=== PATIENT | female | born 1960 | race Caucasian/White ===

== ENCOUNTER 2017-03-09 13:27 | Emergency (ER) | payer MEDICARE ==
--- NOTE | 2017-03-09 13:35 | EDM.PDOC ---
ED HPI GENERAL MEDICAL PROBLEM - General Chief Complaint: Upper Extremity Injury/Pain Stated Complaint: FELL ON RT SHOULDER DOWN TO THUMB Time Seen by Provider: 03/09/17 13:34 Source of Information: Reports: Patient, Old Records, RN History Limitations: Reports: No Limitations - History of Present Illness INITIAL COMMENTS - FREE TEXT/NARRATIVE: Arrives to ER from home by POV with c/o pain at the Rt neck, trapezius region, Rt shoulder, Rt elbow, and pain radiating to the Rt hand and fingers. Pt states that the pain is the result of falling of the end of her bed from a sitting position at approx. 9AM this morning. Denies any other injury. Onset: Today Onset Date: 03/09/17 Onset Time: 09:00 Duration: Constant Location: Reports: Neck, Upper Extremity, Right, Radiates to (Rt hand) Quality: Reports: Ache Severity: Moderate Improves with: Reports: Immobilization, Rest Worsens with: Reports: Movement Context: Reports: Other (fall) Associated Symptoms: Reports: No Other Symptoms Treatments PSYCHOLOGICAL OPERATIONS SPECIALIST: Reports: Aspirin Right Arm Pain Score (Numeric/FACES): 7 - Related Data Allergies Allergy/AdvReac Type Severity Reaction Status Date / Time gadobenate dimeglumine Allergy Unknown SHORT OF Verified 03/09/17 13:48 [From Multihance] BREATH/WHEEZING/CHEST TIGHTNESS meloxicam [From Mobic] Allergy Unknown UNKNOWN Verified 03/09/17 13:48 tramadol Allergy Syncope Verified 03/09/17 13:49 mushroom extract Allergy Unknown HIVES/URTIC Uncoded 03/09/17 13:48 ARIA Home Meds: Home Meds Hydrochlorothiazide 25 mg PO DAILY 04/10/14 [History] Losartan [Cozaar] 50 mg PO DAILY 04/10/14 [History] FLUoxetine [PROzac] 40 mg PO DAILY 10/28/14 [History] oxyCODONE HCl/Acetaminophen [Endocet 5-325 Tablet] 1 each PO Q4H PRN 10/28/14 [ History] Esomeprazole [NexIUM] 20 mg PO DAILY 04/24/15 [History] Aspirin [Halfprin] 81 mg PO DAILY 03/09/17 [History] Pregabalin [Lyrica] 100 mg PO BID 03/09/17 [History] atorvaSTATin [Lipitor] 20 mg PO DAILY 03/09/17 [History] metFORMIN [Glucophage XR] 500 mg PO BIDMEALS 03/09/17 [History] Past Medical History Cardiovascular History: Reports: High Cholesterol, Hypertension Gastrointestinal History: Reports: GERD Neurological History: Reports: Neuropathy, Diabetic, Neuropathy, Peripheral, Other (See Below) (pseudoseizure disorder) Psychiatric History: Reports: Anxiety, Depression Endocrine/Metabolic History: Reports: Diabetes, Type II, Obesity/BMI 30+ Social & Family History - Family History Family Medical History: Noncontributory - Tobacco Use Smoking Status *Q: Current Every Day Smoker Years of Tobacco use: 30 Used Tobacco, but Quit: No Second Hand Smoke Exposure: Yes - Alcohol Use Days Per Week of Alcohol Use: 0 - Recreational Drug Use Recreational Drug Use: No Drug Use in Last 12 Months: No - Living Situation & Occupation Living situation: Reports: with Family Review of Systems - Review of Systems Review Of Systems: ROS reveals no pertinent complaints other than HPI. ED EXAM, GENERAL - Physical Exam Exam: See Below Exam Limited By: No Limitations General Appearance: Alert, WD/WN, No Apparent Distress, Obese Eye Exam: Bilateral Eye: Normal Inspection Ears: Normal External Exam Nose: Normal Inspection, No Blood Throat/Mouth: Normal Inspection Head: Atraumatic, Normocephalic Neck: Supple, Limited Range of Motion, Other (tender at Rt lower paraspinal cervical muscles). No: Lymphadenopathy (L), Lymphadenopathy (R) Respiratory/Chest: No Respiratory Distress, Lungs Clear Cardiovascular: Normal Peripheral Pulses, Regular Rate, Rhythm Back Exam: Full Range of Motion, Other (Rt superior trapezius muscle tenderness to palpation) Extremities: Normal Capillary Refill, Arm Pain (Rt), Limited Range of Motion ( Rt shoulder and Rt elbow), Other (Tender to palpation of Rt shoulder and Rt elbow, with contusion to Rt medial elbow.) Neurological: Alert, Oriented, CN II-XII Intact, Normal Cognition, Normal Gait, No Motor/Sensory Deficits Psychiatric: Normal Affect, Normal Mood Skin Exam: Warm, Dry, Intact Course - Vital Signs Last Recorded V/S: Last Vital Signs Temp 36.8 C 03/09/17 13:42 Pulse 72 03/09/17 13:42 Resp 20 03/09/17 13:42 BP 127/78 03/09/17 13:42 Pulse Ox 97 03/09/17 13:42 - Orders/Labs/Meds Meds: Medications Discontinued Medications Generic Name Dose Route Start Last Admin Trade Name Tushar PRN Reason Stop Dose Admin Oxycodone/Acetaminophen 1 tab 03/09/17 14:17 03/09/17 14:27 Percocet 325-5 Mg PO 03/09/17 14:18 1 tab ONETIME ONE Administration - Radiology Interpretation Free Text/Narrative:: Xray C-spine: no fracture Xray Rt shoulder: no fracture Xray Rt elbow: no fracture Departure - Departure Time of Disposition: 15:05 Disposition: Home, Self-Care 01 Condition: fair Clinical Impression: Trapezius muscle spasm, Cervical radiculopathy Contusion of right elbow Qualifiers: Encounter type: initial encounter Qualified Code(s): S50.01XA - Contusion of right elbow, initial encounter Cervical strain, acute Qualifiers: Encounter type: initial encounter Qualified Code(s): S16.1XXA - Strain of muscle, fascia and tendon at neck level, initial encounter Fall as cause of accidental injury at home as place of occurrence Qualifiers: Encounter type: initial encounter Qualified Code(s): W19.XXXA - Unspecified fall, initial encounter - Discharge Information Instructions: Cervical Radiculopathy, [id number], Contusion, [id number], Shoulder Pain, [id number] Forms: ED Department Discharge Additional Instructions: Rest and ice packs to area(s) of pain. Activity as tolerated. Follow up in clinic next week if not improving as expected.
[2017-03-09 13:43] VITALS: BP 127/78
[2017-03-09] MEDS ORDERED: Acetaminophen/oxyCODONE 325-5 MG Tab PO ONE (14:17)
--- NOTE | 2017-03-09 14:48 | CR ---
Clinical history: 57-year-old female injured fall Interpretation: 2 views right shoulder (internal/external rotation) show evidence of old trauma i.e. Hill-Sachs notch like deformity lateral aspect of the humeral head and some reactive sclerosis ipsi lateral acromioclavicular joint. Subtle narrowing of the space between the acromion process scapula and the the head of the humerus s uggesting possible rotator cuff impingement or tear but no juxta-articular rotator cuff tendon calci fication. No pathologic skeletal lesions. Right lung apex clear. CONCLUSION: No sign of acute fracture or dislocation. Arthritis.
--- NOTE | 2017-03-09 14:50 | CR ---
Clinical history: 57-year-old female injured right elbow fall. Interpretation: Tiny spur olecranon process proximal ulna. No joint effusion, right elbow fracture or dislocation. No foreign bodies.
--- NOTE | 2017-03-09 14:51 | CR ---
Clinical history: 57-year-old female injured in fall. Interpretation: AP, lateral and open-mouth odontoid views of the cervical spine confirm some mild ar thritic changes (uncinate spur and sclerosis articulating facets). No sign of prevertebral soft tissue swelling, cervical fracture, spondylolisthesis or abnormal inter vertebral disc space narrowing. Lung apices clear. CONCLUSION: Arthritis. No fractures.
== END 2017-03-09 15:18 | disposition home or self-care (01) ==
LOC: DL.ED 13:27
DX: M62.838 Other muscle spasm (principal); M54.12 Radiculopathy, cervical region; E11.42 Type 2 diabetes mellitus with diabetic polyneuropathy; F17.210 Nicotine dependence, cigarettes, uncomplicated; I10 Essential (primary) hypertension; K21.9 Gastro-esophageal reflux disease without esophagitis; E66.9 Obesity, unspecified; Z79.82 Long term (current) use of aspirin; Z79.84 Long term (current) use of oral hypoglycemic drugs; Z79.899 Other long term (current) drug therapy; Z88.8 Allergy status to other drugs, medicaments and biological substances
CPT/HCPCS: 72040; 73030; 73080; 99283; A9270

== ENCOUNTER 2017-06-13 01:45 | Emergency (ER) | payer MEDICARE, OTHER ==
[2017-06-13] MEDS ORDERED: Tenecteplase 50 MG Kit IV ONE (01:46)
[2017-06-13] MEDS ORDERED: Ondansetron 4 MG/2 ML SDV ONE (02:08)
[2017-06-13] MEDS ORDERED: Tenecteplase 50 MG Kit ONE (02:49)
[2017-06-13 04:35] LABS: CHLORIDE,CL 101 mmol/L (101-111); SODIUM,NA 140 mmol/L (135-145)
--- NOTE | 2017-06-14 12:54 | EKG ---
06/13/2017 - HUGO MCWILLIAMS - Maximus 12-lead EKG shows normal sinus rhythm with heart rate of 72. No significant ST elevation or ST depression noted on this 12-lead EKG. Nonspecific ST-T wave changes noted on lead aVL. [facility] /[id number]
== END 2017-06-13 03:28 ==
LOC: DL.ED 01:45
DX: I63.9 Cerebral infarction, unspecified (principal); E11.9 Type 2 diabetes mellitus without complications; I10 Essential (primary) hypertension; Z87.891 Personal history of nicotine dependence
CPT/HCPCS: 36415; 70450; 71010; 80053; 81001; 82150; 82962; 84484; 85025; 85610; 96374; 96375; 99284; 99285; J3101

== ENCOUNTER 2017-07-25 12:12 | Emergency (ER) | payer MEDICARE ==
[2017-07-25 12:27] VITALS: BP 131/82
--- NOTE | 2017-07-25 12:32 | EDM.PDOC ---
ED HPI GENERAL MEDICAL PROBLEM - General Chief Complaint: Neurological Problem Stated Complaint: [id number] LEFT LEG NUMB HAD STROKE IN JUN Time Seen by Provider: 07/25/17 12:25 Source of Information: Reports: Patient, Family, RN, RN Notes Reviewed History Limitations: Reports: Language Barrier (speech garbled and slurred), Physical Impairment - History of Present Illness INITIAL COMMENTS - FREE TEXT/NARRATIVE: Patient brought to the ER by her . states she had a stroke in June. He states today about 1130 he noticed that her speech was hard to understand and that she was unable to stand on her own. Patient is alert upon arrival and attempting to answer questions. Denies pain at this time. Onset: Today, Sudden - Related Data Allergies Allergy/AdvReac Type Severity Reaction Status Date / Time gadobenate dimeglumine Allergy Unknown SHORT OF Verified 07/25/17 12:19 [From Multihance] BREATH/WHEEZING/CHEST TIGHTNESS meloxicam [From Mobic] Allergy Unknown UNKNOWN Verified 07/25/17 12:19 tramadol Allergy Syncope Verified 07/25/17 12:19 mushroom extract Allergy Unknown HIVES/URTIC Uncoded 07/25/17 12:19 ARIA Home Meds: Home Meds Hydrochlorothiazide 25 mg PO DAILY 04/10/14 [History] Losartan [Cozaar] 50 mg PO DAILY 04/10/14 [History] FLUoxetine [PROzac] 40 mg PO DAILY 10/28/14 [History] oxyCODONE HCl/Acetaminophen [Endocet 5-325 Tablet] 1 each PO Q4H PRN 10/28/14 [ History] Esomeprazole [NexIUM] 20 mg PO DAILY 04/24/15 [History] Aspirin [Halfprin] 81 mg PO DAILY 03/09/17 [History] Pregabalin [Lyrica] 100 mg PO BID 03/09/17 [History] atorvaSTATin [Lipitor] 20 mg PO DAILY 03/09/17 [History] metFORMIN [Glucophage XR] 500 mg PO BIDMEALS 03/09/17 [History] Past Medical History HEENT History: Reports: Impaired Vision Other HEENT History: wears glasses Cardiovascular History: Reports: High Cholesterol, Hypertension Respiratory History: Reports: None Gastrointestinal History: Reports: GERD Genitourinary History: Reports: None 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: Reports: None Neurological History: Reports: Neuropathy, Diabetic, Neuropathy, Peripheral, Other (See Below) (pseudoseizure disorder) Psychiatric History: Reports: Anxiety, Depression Endocrine/Metabolic History: Reports: Diabetes, Type II, Obesity/BMI 30+ Hematologic History: Reports: None Immunologic History: Reports: None Oncologic (Cancer) History: Reports: None Dermatologic History: Reports: None - Infectious Disease History Infectious Disease History: Reports: Chicken Pox, Measles, Mumps - Past Surgical History Head Surgeries/Procedures: Reports: None Other Musculoskeletal Surgeries/Procedures:: left ankle Social & Family History - Family History Family Medical History: Noncontributory - Tobacco Use Smoking Status *Q: Current Every Day Smoker Years of Tobacco use: 30 Packs/Tins Daily: 0.5 Used Tobacco, but Quit: No Second Hand Smoke Exposure: Yes - Caffeine Use Caffeine Use: Reports: Soda - Alcohol Use Days Per Week of Alcohol Use: 0 - Recreational Drug Use Recreational Drug Use: No Drug Use in Last 12 Months: No - Living Situation & Occupation Living situation: Reports: with Family ED ROS GENERAL - Review of Systems Review Of Systems: ROS reveals no pertinent complaints other than HPI. ED EXAM, NEURO - Physical Exam Exam: See Below Exam Limited By: Language Barrier General Appearance: Alert, Anxious, Mild Distress Eye Exam: Bilateral Eye: Normal Inspection, PERRL Ears: Normal External Exam Nose: Normal Inspection Throat/Mouth: Normal Inspection, Normal Voice, No Airway Compromise Head Exam: Atraumatic, Normocephalic Neck: Normal Inspection, Supple, Non-Tender, Full Range of Motion Respiratory/Chest: No Respiratory Distress, Lungs Clear, Normal Breath Sounds, No Accessory Muscle Use, Chest Non-Tender Cardiovascular: Normal Peripheral Pulses, Regular Rate, Rhythm, No Edema, No Gallop, No JVD, No Murmur, No Rub GI/Abdominal: Normal Bowel Sounds, Soft, Non-Tender, No Organomegaly, No Distention, No Abnormal Bruit, No Mass (Female) Exam: Deferred Rectal (Female) Exam: Deferred Neurological: Alert, Normal Mood/Affect, Abnormal Finger to Nose, Abnormal Sensation, Abnormal Motor, Other (family states unable to stand). No: Straight Leg Raise (L) Back Exam: Normal Inspection, Full Range of Motion Extremities: Normal Inspection, Non-Tender, Limited Range of Motion (left) Psychiatric: Normal Affect, Normal Mood Skin Exam: Warm, Dry, Intact, Normal Color, No Rash EKG INTERPRETATION EKG Date: 07/25/17 Rhythm: NSR [place]: Normal P-Wave: Present QRS: Normal ST-T: Normal QT: Normal Comparison: No Change Course - Vital Signs Last Recorded V/S: Last Vital Signs Temp 98.2 F 07/25/17 12:21 Pulse 85 07/25/17 12:21 Resp 18 07/25/17 12:21 BP 131/82 07/25/17 12:21 Pulse Ox 98 07/25/17 12:21 - Orders/Labs/Meds Orders: Active Orders 24 hr Category Date Time Status EKG Documentation Completion [RC] URGENT Care 07/25/17 12:21 Active Labs: Laboratory Tests 07/25/17 07/25/17 07/25/17 Range/Units 12:22 12:22 12:22 WBC 10.3 H (5.0-10.0) 10^3/uL RBC 4.95 (4.2-5.4) 10^6/uL Hgb 13.4 (12.0-16.0) g/dL Hct 39.9 (37.0-47.0) % MCV 80.6 (80-100) fL MCH 27.1 (27.0-34.0) pg MCHC 33.6 (33.0-35.0) g/dL Plt Count 270 (150-450) 10^3/uL Neut % (Auto) 72.1 (42.2-75.2) % Lymph % (Auto) 22.0 (20.5-50.1) % [place] % (Auto) 3.9 (2-8) % Eos % (Auto) 1.5 (1.0-3.0) % Baso % (Auto) 0.5 (0.0-1.0) % PT 9.1 (9.0-12.0) SEC INR 0.9 (0.9-1.2) Sodium 134 L (135-145) mmol/L Potassium 3.3 L (3.6-5.0) mmol/L Chloride 97 L (101-111) mmol/L Carbon Dioxide 25.0 (21.0-31.0) mmol/L Anion Gap 15.3 BUN 12 (7-18) mg/dL Creatinine 1.0 (0.6-1.3) mg/dL Est Cr Clr Drug Dosing 54.24 mL/min Estimated GFR (MDRD) 57 BUN/Creatinine Ratio 12.00 Glucose 166 H (74-105) mg/dL Calcium 8.8 (8.4-10.2) mg/dl Total Bilirubin 0.5 (0.2-1.0) mg/dL AST 24 (10-42) IU/L ALT 18 (10-60) IU/L Alkaline Phosphatase 104 (42-121) IU/L Troponin I < 0.02 (0.00-0.02) ng/ml Total Protein 7.7 (6.7-8.2) g/dl Albumin 3.8 (3.2-5.5) g/dl Globulin 3.9 Albumin/Globulin Ratio 0.97 Meds: Medications Discontinued Medications Generic Name Dose Route Start Last Admin Trade Name Freq PRN Reason Stop Dose Admin Alteplase, Recombinant 9 mg 07/25/17 13:30 07/25/17 13:42 Activase IV 07/25/17 13:31 9 mg .BOLUS ONE Administration Alteplase, Recombinant 81 mg 07/25/17 13:46 07/25/17 13:48 Activase IV 07/25/17 13:47 81 mg ASDIRECTED ONE Administration - Re-Assessments/Exams Free Text/Narrative Re-Assessment/Exam: 07/25/17 14:19 1312: [facility] called to initiate transport of the patient to their facility. Symptoms and past history given to Dr. Mota. Instructions from Dr. Mota were to give the patient tPA and transport her to [facility]. The provider told Dr. Mota that on 06/13/17 the patient had mistakenly been given tnkase instead of tPA for similar symptoms. It was reiterated to Dr. Mota that the patient had received tnkase about [address] Mota states understanding and to continue with the orders to give tPA right now and transport the patient by helicopter to [facility]. 07/25/17 14:35 Departure - Departure Time of Disposition: 14:16 Disposition: DC/Tfer to [facility] 02 Condition: Fair, Critical Clinical Impression: Left-sided weakness, Slurred speech - Discharge Information Forms: ED Department Discharge, Interfacility Transfer ALEJANDRA
--- NOTE | 2017-07-25 12:50 | CT ---
Clinical history: 57-year-old female left-sided weakness, "stuttering" speech and history of "stroke" in June 2017. Scan technique: Volume acquisition of data emergency unenhanced CT scan of the head and brain obtaine d with patient lying supine on the Siemens multi slice scanner [facility]. All data archived in the PACS system for storage and study (bone/brain windows). Interpretation: No new signs of ischemic infarct or acute intracerebral/and ventricular/subarachnoid bleed when luz red directly back to CT images 13 June 2017. Chronic mild atrophy pattern. No supratentorial or posterior fossa mass lesion. Uniformly thick bony calvarium. Physiologic midline pineal and symmetric choroid plexus calcification s. No hydrocephalus. Cerebellum and brainstem unremarkable. Mastoid and paranasal sinuses clear. No sign of abnormal extracerebral/intracranial epidural or subdural hematoma. CONCLUSION: No change since [address] scan head. No new evidence intracranial infarct (ischemic or hemorrhagic).
[2017-07-25 12:52] LABS: CHLORIDE,CL 97 mmol/L (101-111); SODIUM,NA 134 mmol/L (135-145)
--- NOTE | 2017-07-26 22:26 | EKG ---
07/25/2017 - HUGO MCWILLIAMS - TIME OF EK:36 p.m. EKG shows normal sinus rhythm. There is left axis deviation. [facility] /[id number]
--- NOTE | 2017-07-26 22:35 | EKG ---
07/25/2017 - HUGO MCWILLIAMS - TIME: 12:35 p.m. EKG shows normal sinus rhythm. [facility] /[id number]
== END 2017-07-25 14:20 ==
LOC: DL.ED 12:12
DX: R47.81 Slurred speech (principal); R53.1 Weakness; I10 Essential (primary) hypertension; F17.210 Nicotine dependence, cigarettes, uncomplicated; Z88.5 Allergy status to narcotic agent; Z88.8 Allergy status to other drugs, medicaments and biological substances; Z79.84 Long term (current) use of oral hypoglycemic drugs; Z79.899 Other long term (current) drug therapy
CPT/HCPCS: 36415; 51702; 70450; 80053; 84484; 85025; 85610; 93005; 93010; 96365; 96374; 99285; J2997

== ENCOUNTER 2019-02-07 05:21 | Day surgery (SDC) | payer MEDICARE ==
[2019-02-07] MEDS ORDERED: fentaNYL 100 MCG/2 ML SDV IV ONE ×3 (05:22→06:30)
[2019-02-07] MEDS ORDERED: Midazolam 1 MG/ML 2 ML SDV IV ONE ×4 (05:22→06:37)
[2019-02-07] MEDS ORDERED: Sodium Chloride 0.9% 10 ML Syringe FLUSH PRN (06:00)
[2019-02-07] MEDS ORDERED: Dextrose 5%-0.45% NaCl 1,000 ML IV SCH (06:00)
[2019-02-07] MEDS ORDERED: fentaNYL 100 MCG/2 ML SDV ONE (06:07)
[2019-02-07] MEDS ORDERED: Midazolam 1 MG/ML 2 ML SDV ONE (06:07)
--- NOTE | 2019-02-07 08:25 | OR ---
DATE: 02/07/2019 PROCEDURE PERFORMED: Total colonoscopy, terminal ileoscopy, NBI, and multiple pinch biopsies. INSTRUMENT USED: PCF-H190DL Olympus video colonoscope. PREMEDICATIONS: Fentanyl 100 mcg intravenous, Versed 3 mg intravenous. Nasal O2 cannula. The procedure was done under pulse oximetry, BP recording, and cardiac catheterization technician. INDICATION: The patient with chronic diarrhea, unexplained and not responsive to medical measures. Colonoscopic examination is done for detection of any polypoid lesions and removal, biopsies to be obtained for microscopic colitis, endoscopic hemostasis therapy if needed. DESCRIPTION OF PROCEDURE: Initial rectal exam showed large external hemorrhoids. Rigid anoscopy showed small internal hemorrhoids without bleeding from them. The colonoscope was passed with ease. Numerous scattered diverticula were noted, more so in the distal left colon along with deformity. The scope was passed with ease up to and beyond the ileocecal junction to visualize normal-appearing terminal ileum, NBI views were obtained, photographs were taken, multiple pinch biopsies were taken and sent for histopathology. Photographs were taken of the normal-appearing cecum. No bleeding was noted from any of the visualized areas at the commencement of the examination. The bowel preparation was found to be adequate, [place] scale 2. No stricture. No vascular ectasia. No large isolated ulcerations seen. No evidence of diffuse inflammatory bowel disease in the form of friability, contact bleeding, or ulcerations. No polyp or tumor mass identified. Probing the proximal sides of folds and flexures using adequate distention and clearing up the stool material, withdrawal of the scope was made. Multiple pinch biopsies were taken from the normal-appearing mucosa of the mid transverse colon, mid descending colon, and rectosigmoid, and sent for any histopathologic evidence of microscopic colitis. No bleeding was noted from any of the visualized areas at the completion of examination. IMPRESSION: Diverticulosis. The patient tolerated the procedure well. [facility] /[id number]
[2019-02-07 11:14] VITALS: BP 113/57
== END 2019-02-07 08:54 | disposition home or self-care (01) ==
LOC: DL.ENDO 05:21
PROVIDERS: ATTEND Internal Medicine Gastroenterology
DX: K57.30 Diverticulosis of large intestine without perforation or abscess without bleeding (principal); K64.4 Residual hemorrhoidal skin tags; K64.8 Other hemorrhoids; K21.0 Gastro-esophageal reflux disease with esophagitis; I12.9 Hypertensive chronic kidney disease with stage 1 through stage 4 chronic kidney disease, or unspecified chronic kidney disease; E11.22 Type 2 diabetes mellitus with diabetic chronic kidney disease; N18.9 Chronic kidney disease, unspecified; F41.1 Generalized anxiety disorder; F32.9 Major depressive disorder, single episode, unspecified; E66.09 Other obesity due to excess calories; Z68.41 Body mass index [BMI] 40.0-44.9, adult; Z91.018 Allergy to other foods; Z88.1 Allergy status to other antibiotic agents; Z91.041 Radiographic dye allergy status; Z79.82 Long term (current) use of aspirin
CPT/HCPCS: 45380; J2250; J3010; J7042; 88305

== ENCOUNTER 2020-02-26 13:06 | Emergency (ER) | payer MEDICARE, SELFPAY ==
[2020-02-26] MEDS ORDERED: Aspirin 81 MG Tab.Chew PO ONE (13:14)
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
--- NOTE | 2020-02-26 13:51 | CR ---
EXAMINATION: Chest 1V Frontal SEX: Female AGE: 60 years CLINICAL HISTORY: 60-year-old obese hypertensive, diabetic female smoker with CHEST PAIN reported on CT scan chest 11 November 2019 to have "no acute cardiopulmonary abnormality or suspicious lung nodules". INTERPRETATION: (Upright AP portable chest) external quality assurance monitor chassis leads. No acute new cardiopulmonary abnormality since comparison film 07 June 2018. 1. Normal cardiac silhouette and pulmonary vascularity. No congestion, cephalization of flow, alveolar edema or dependent pleural effusion. 2. No lung mass or hilar lymphadenopathy. 3. No lobar infiltrate, atelectasis or collapse. 4. No pneumothorax or pneumomediastinum. Midline tracheal bronchial airway unremarkable.
[2020-02-26 14:27] LABS: ANION GAP 10.8 mEq/L (7-13); CHLORIDE,CL 100 mmol/L (98-107); SODIUM,NA 136 mmol/L (136-145)
[2020-02-26] MEDS ORDERED: GI Cocktail Oral Solution 30 ML PO ONE (14:37)
[2020-02-26 14:46] VITALS: BP 114/54; PULSE 75
== END 2020-02-26 15:45 | disposition home or self-care (01) ==
LOC: DL.ED 13:06
DX: R07.9 Chest pain, unspecified (principal); I12.9 Hypertensive chronic kidney disease with stage 1 through stage 4 chronic kidney disease, or unspecified chronic kidney disease; E11.22 Type 2 diabetes mellitus with diabetic chronic kidney disease; N18.9 Chronic kidney disease, unspecified; E78.5 Hyperlipidemia, unspecified; E11.42 Type 2 diabetes mellitus with diabetic polyneuropathy; F41.9 Anxiety disorder, unspecified; F32.9 Major depressive disorder, single episode, unspecified; E66.9 Obesity, unspecified; Z91.041 Radiographic dye allergy status; Z88.6 Allergy status to analgesic agent; Z91.018 Allergy to other foods; Z79.84 Long term (current) use of oral hypoglycemic drugs; Z79.82 Long term (current) use of aspirin; Z79.899 Other long term (current) drug therapy; Z68.33 Body mass index [BMI] 33.0-33.9, adult
CPT/HCPCS: 36415; 71045; 80053; 84484; 85025; 93005; 99283; 99285; A9270

== ENCOUNTER 2021-01-05 20:31 | Emergency (ER) | payer MEDICARE, OTHER ==
--- NOTE | 2021-01-05 21:33 | EDM.PDOC ---
ED HPI GENERAL MEDICAL PROBLEM - General Chief Complaint: Abdominal Pain Stated Complaint: PAIN ON LEFT SIDE OF BODY, SINCE MONDAY Time Seen by Provider: 01/05/21 21:20 Source of Information: Reports: Patient, RN, RN Notes Reviewed History Limitations: Reports: No Limitations - History of Present Illness INITIAL COMMENTS - FREE TEXT/NARRATIVE: Pt is a 60 year old female who presents to ER with c/o LLQ pain. She states the pain began Monday. Patient states she has been having loose stools 3-4 times per day since Monday. Admits to nausea and vomiting intermittently since Monday. Denies fever or chills. Denies chest pains or SOB. Denies any urinary sx such as burning. She states she always has frequency and urgency. Patient states she has a hx of diverticulosis, but has not eaten anything that would affect it. States she had tubal ligation 30 years ago. Never has been told that she has cysts on the ovaries. Rates pain 4-7/10, stabbing pain. Very tender to palpate. 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, Heat Therapy, NSAIDS Left Lower Abdomen Pain Score (Numeric/FACES): 6 - Related Data Allergies Allergy/AdvReac Type Severity Reaction Status Date / Time gadobenate dimeglumine Allergy Unknown SHORT OF Verified 01/05/21 21:03 [From Multihance] BREATH/WHEEZING/CHEST TIGHTNESS meloxicam [From Mobic] Allergy Unknown UNKNOWN Verified 01/05/21 21:03 Iodinated Contrast Media Allergy Shortness Verified 01/05/21 21:03 [Iodinated Contrast- Oral of Breath and IV Dye] tramadol Allergy Syncope Verified 01/05/21 21:03 mushroom extract Allergy Unknown HIVES/URTIC Uncoded 01/05/21 21:03 ARIA Home Meds: Home Meds hydroCHLOROthiazide [Hydrochlorothiazide] 25 mg PO DAILY 04/10/14 [History] FLUoxetine [PROzac] 60 mg PO DAILY 10/28/14 [History] oxyCODONE HCl/Acetaminophen [Endocet 5-325 Tablet] 1 each PO Q4H PRN 10/28/14 [History] Esomeprazole [NexIUM] 20 mg PO DAILY 04/24/15 [History] Pregabalin [Lyrica] 100 mg PO BID 03/09/17 [History] atorvaSTATin [Lipitor] 20 mg PO DAILY 03/09/17 [History] metFORMIN [Glucophage XR] 500 mg PO BIDMEALS 03/09/17 [History] Acetaminophen 325 - 650 mg PO ASDIRECTED 02/04/19 [History] Albuterol [Ventolin HFA] 1 - 2 puff INH ASDIRECTED PRN 02/04/19 [History] Aspirin 325 mg PO DAILY 02/04/19 [History] Calcium Carb/D3/Magnesium/Zinc [Uxqnxre-Mxb-Zihj-Vit D] 1 tab PO DAILY 02/04/19 [History] Cholecalciferol (Vitamin D3) [Vitamin D3] 1,000 units PO DAILY 02/04/19 [History] Diclofenac Sodium [Voltaren 0.1% Ophth Soln] 1 applic TOP ASDIRECTED 02/04/19 [History] Potassium Chloride [K-Tab ER] 20 meq PO BID 02/04/19 [History] calcitrioL [Rocaltrol] 0.5 mcg PO DAILY 02/04/19 [History] Losartan [Cozaar] 100 mg PO DAILY 03/30/20 [History] Past Medical History HEENT History: Reports: Impaired Vision Other HEENT History: wears glasses Cardiovascular History: Reports: High Cholesterol, Hypertension, Other (See Below) Other Cardiovascular History: ESSENTIAL HYPERTENSION. 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 CHONDROMALACIA OF LEFT PATELLA. STRESS FRACTURE OF LEFT TIBIA WITH DELAYED HEALING Neurological History: Reports: CVA, Neuropathy, Diabetic, Neuropathy, Peripheral, Seizure, Other (See Below) Other Neuro History: CONVULSIONS. SOMATOFORM DISORDER Psychiatric History: Reports: Anxiety, Depression Endocrine/Metabolic History: Reports: Diabetes, Type II, Obesity/BMI 30+, Vitamin D Deficiency Hematologic History: Reports: B12 Deficiency, Iron Deficiency Immunologic History: Reports: None Oncologic (Cancer) History: Reports: None Dermatologic History: Reports: None - Infectious Disease History Infectious Disease History: Reports: Chicken Pox, Measles, Mumps - Past Surgical History Head Surgeries/Procedures: Reports: None HEENT Surgical History: Reports: None Cardiovascular Surgical History: Reports: None Respiratory Surgical History: Reports: None GI Surgical History: Reports: Cholecystectomy, Colonoscopy, EGD Female Surgical History: Reports: D&C, Tubal Ligation, Other (See Below) Other Female Surgeries/Procedures: HYSTERSCOPY. ENDOMETRIAL BIOPSY Endocrine Surgical History: Reports: None Neurological Surgical History: Reports: None Musculoskeletal Surgical History: Reports: Other (See Below) Other Musculoskeletal Surgeries/Procedures:: left ankle Oncologic Surgical History: Reports: None Dermatological Surgical History: Reports: None Social & Family History - Family History Family Medical History: No Pertinent Family History - Tobacco Use Tobacco Use Status *Q: Current Every Day Tobacco User Years of Tobacco use: 43 Packs/Tins Daily: 0.5 - Caffeine Use Caffeine Use: Reports: Soda Caffeine Use Comment: drinks "coke" daily - Recreational Drug Use Recreational Drug Use: No - Living Situation & Occupation Living situation: Reports: with Family ED ROS GENERAL - Review of Systems Review Of Systems: Comprehensive ROS is negative, except as noted in HPI. ED EXAM, GI/ABD - Physical Exam Exam: See Below Exam Limited By: No Limitations General Appearance: Alert, WD/WN, Moderate Distress Eyes: Bilateral: Normal Appearance, EOMI Ears: Normal External Exam, Hearing Grossly Normal Nose: Normal Inspection Throat/Mouth: Normal Inspection, Normal Voice, No Airway Compromise Head: Atraumatic, Normocephalic Neck: Normal Inspection, Supple, Non-Tender, Full Range of Motion Respiratory/Chest: No Respiratory Distress, Lungs Clear, Normal Breath Sounds, No Accessory Muscle Use, Chest Non-Tender Cardiovascular: Normal Peripheral Pulses, Regular Rate, Rhythm, No Edema, No Gallop, No JVD, No Murmur, No Rub GI/Abdominal Exam: Soft, No Organomegaly, No Distention, No Abnormal Bruit, No Mass, Pelvis Stable, Guarding, Tender (LLQ), Abnormal Bowel Sounds (hypoactive) (Female) Exam: Deferred Rectal (Female) Exam: Deferred Back Exam: Normal Inspection, Full Range of Motion, NT Extremities: Normal Inspection, Normal Range of Motion, Non-Tender, Normal Capillary Refill, No Pedal Edema Neurological: Alert, Oriented, CN II-XII Intact, Normal Cognition, Normal Gait, Normal Reflexes, No Motor/Sensory Deficits Psychiatric: Normal Affect, Normal Mood Skin Exam: Warm, Dry, Intact, Normal Color, No Rash Lymphatic: No Adenopathy Course - Vital Signs Last Recorded V/S: Last Vital Signs Temp 98.7 F 01/05/21 23:52 Pulse 80 01/05/21 23:52 Resp 19 01/05/21 23:52 BP 138/76 01/05/21 23:52 Pulse Ox 97 01/05/21 23:52 - Orders/Labs/Meds Orders: Active Orders 24 hr Category Date Time Status CULTURE BLOOD [BC] Stat Lab 01/05/21 21:32 Results CULTURE BLOOD [BC] Stat Lab 01/05/21 21:39 Received Blood Culture x2 Reflex Set [OM.PC] Stat Oth 01/05/21 21:26 Ordered Labs: Laboratory Tests 01/05/21 01/05/21 01/05/21 Range/Units 20:48 21:32 21:32 WBC 16.8 H (5.0-10.0) 10^3/uL RBC 5.00 (4.2-5.4) 10^6/uL Hgb 14.5 (12.0-16.0) g/dL Hct 42.4 (37.0-47.0) % MCV 84.8 (80-100) fL MCH 29.0 (27.0-34.0) pg MCHC 34.2 (33.0-35.0) g/dL Plt Count 282 (150-450) 10^3/uL Neut % (Auto) 81.2 H (42.2-75.2) % Lymph % (Auto) 11.3 L (20.5-50.1) % [place] % (Auto) 6.6 (2-8) % Eos % (Auto) 0.6 L (1.0-3.0) % Baso % (Auto) 0.3 (0.0-1.0) % Sodium 137 (136-145) mmol/L Potassium 3.8 (3.5-5.1) mmol/L Chloride 98 (98-107) mmol/L Carbon Dioxide 28 (21-32) mmol/L Anion Gap 14.8 H (7-13) mEq/L BUN 14 (7-18) mg/dL Creatinine 1.12 H (0.55-1.02) mg/dL Est Cr Clr Drug Dosing 46.70 mL/min Estimated GFR (MDRD) 50 BUN/Creatinine Ratio 12.5 (No establ ref range) Glucose 100 H (70-99) mg/dL Lactic Acid (0.4-2.0) mmol/L Calcium 8.8 (8.5-10.1) mg/dL Total Bilirubin 0.5 (0.2-1.0) mg/dL AST 6 L (15-37) U/L ALT 19 (14-59) U/L Alkaline Phosphatase 113 (46-116) U/L C-Reactive Protein 5.6 H (0.0-0.9) mg/dL Total Protein 7.7 (6.4-8.2) g/dL Albumin 3.3 L (3.4-5.0) g/dL Globulin 4.4 Albumin/Globulin Ratio 0.75 Urine Color Yellow (YELLOW) Urine Appearance Clear (CLEAR) Urine pH 5.5 (5.0-9.0) Ur Specific [place] 1.010 (1.005-1.030) Urine Protein Negative (NEGATIVE) Urine Glucose (UA) Negative (NEGATIVE) Urine Ketones Negative (NEGATIVE) Urine Occult Blood Negative (NEGATIVE) Urine Nitrite Negative (NEGATIVE) Urine Bilirubin Negative (NEGATIVE) Urine Urobilinogen 0.2 (0.2-1.0) mg/dL Ur Leukocyte Esterase Negative (NEGATIVE) SARS-CoV-2 RNA (KRISTAN) (NEGATIVE) 01/05/21 01/05/21 Range/Units 21:32 22:29 WBC (5.0-10.0) 10^3/uL RBC (4.2-5.4) 10^6/uL Hgb (12.0-16.0) g/dL Hct (37.0-47.0) % MCV (80-100) fL MCH (27.0-34.0) pg MCHC (33.0-35.0) g/dL Plt Count (150-450) 10^3/uL Neut % (Auto) (42.2-75.2) % Lymph % (Auto) (20.5-50.1) % [place] % (Auto) (2-8) % Eos % (Auto) (1.0-3.0) % Baso % (Auto) (0.0-1.0) % Sodium (136-145) mmol/L Potassium (3.5-5.1) mmol/L Chloride (98-107) mmol/L Carbon Dioxide (21-32) mmol/L Anion Gap (7-13) mEq/L BUN (7-18) mg/dL Creatinine (0.55-1.02) mg/dL Est Cr Clr Drug Dosing mL/min Estimated GFR (MDRD) BUN/Creatinine Ratio (No establ ref range) Glucose (70-99) mg/dL Lactic Acid 0.9 (0.4-2.0) mmol/L Calcium (8.5-10.1) mg/dL Total Bilirubin (0.2-1.0) mg/dL AST (15-37) U/L ALT (14-59) U/L Alkaline Phosphatase (46-116) U/L C-Reactive Protein (0.0-0.9) mg/dL Total Protein (6.4-8.2) g/dL Albumin (3.4-5.0) g/dL Globulin Albumin/Globulin Ratio Urine Color (YELLOW) Urine Appearance (CLEAR) Urine pH (5.0-9.0) Ur Specific [place] (1.005-1.030) Urine Protein (NEGATIVE) Urine Glucose (UA) (NEGATIVE) Urine Ketones (NEGATIVE) Urine Occult Blood (NEGATIVE) Urine Nitrite (NEGATIVE) Urine Bilirubin (NEGATIVE) Urine Urobilinogen (0.2-1.0) mg/dL Ur Leukocyte Esterase (NEGATIVE) SARS-CoV-2 RNA (KRISTAN) Negative (NEGATIVE) Meds: Medications Discontinued Medications Generic Name Dose Route Start Last Admin Trade Name Freq PRN Reason Stop Dose Admin Hydromorphone HCl 0.5 mg 01/05/21 22:30 01/05/21 22:39 Hydromorphone 0.5 Mg/0.5 Ml Syringe IVPUSH 01/05/21 22:31 0.5 mg ONETIME ONE Administration Sodium Chloride 1,000 mls @ 999 mls/hr 01/05/21 22:09 01/05/21 22:33 Normal Saline IV 01/05/21 23:09 999 mls/hr .BOLUS ONE Administration Ciprofloxacin/Dextrose 400 mg/ 200 mls @ 200 mls/hr 01/05/21 22:29 01/05/21 23:45 Premix IV 01/05/21 23:28 200 mls/hr ONETIME ONE Administration Metronidazole 500 mg/ Premix 100 mls @ 100 mls/hr 01/05/21 22:29 01/05/21 22:41 IV 01/05/21 23:28 100 mls/hr ONETIME ONE Administration - Radiology Interpretation Free Text/Narrative:: CT abdomen/pelvis wo contrast: PROCEDURE INFORMATION: Exam: CT Abdomen And Pelvis Without Contrast Exam date and time: 01/05/2021 9:57 PM Age: 60 years old Clinical indication: Abdominal pain; Localized; Left lower quadrant (llq); Prior surgery; Surgery date: 6+ months; Surgery type: Cholecystectomy; Additional info: Llq pain TECHNIQUE: Imaging protocol: Computed tomography of the abdomen and pelvis without contrast. Radiation optimization: All CT scans at this facility use at least one of these dose optimization techniques: automated exposure control; mA and/or kV adjustment per patient size (includes targeted exams where dose is matched to clinical indication); or iterative reconstruction. COMPARISON: CT Abdomen Pelvis w Cont 02/01/2019 8:44 AM FINDINGS: Liver: The liver is normal in architecture, without suspicious abnormality. Gallbladder and bile ducts: The gallbladder is surgically absent. Pancreas: The pancreatic parenchyma is normal in bulk and sharply marginated. Duct is not dilated. No calcifications, masses, or abnormal fluid collections. Spleen: Spleen is normal in size. No mass or fluid collection. Adrenal glands: There are no adrenal masses. Kidneys and ureters: Normal in parenchymal bulk. No hydronephrosis or asymmetric perinephric stranding. No solid masses. No stones. Subcentimeter nodule arising from left kidney anteriorly is too small to characterize, not changed significantly, probably a cortical cyst, requiring no further workup according to guidelines. Stomach and bowel: No significant abnormalities of the stomach. There are no dilated or thickened small bowel loops. Gas and stool are seen in the colon to the rectum. No mass. Appendix: The appendix is seen. It is normal. Intraperitoneal space: There is no pneumoperitoneum, abscess, ascites or mass. Retroperitoneal space: Mild stranding of fat with a left lower quadrant colonic diverticulum at its center. Vasculature: There is atherosclerotic calcification of the aorto-iliac tree. There is no abdominal aortic aneurysm. Lymph nodes: There are no enlarged celiac, mesenteric, periportal, extraperitoneal or inguinal lymph nodes. Urinary bladder: There is no bladder wall thickening, mass, or calculus. Reproductive: The uterus and ovaries are within normal limits. There are no adenexal masses. Bones/joints: Age appropriate. No acute fracture. No dislocation. There are no suspicious lytic or osteosclerotic lesions. Soft tissues: No suspicious soft tissue masses, soft tissue gas of significance, or hernia. IMPRESSION: Acute left lower quadrant colonic diverticulitis. No evidence for perforation, drainable abscess, bowel obstruction, or fistula. Thank you for allowing us to participate in the care of your patient. Dictated and Authenticated by: Shyane Cast MD 01/05/2021 10:26 PM Central Time ([place] & [place]) See rad report - Re-Assessments/Exams Free Text/Narrative Re-Assessment/Exam: 01/06/21 00:14 Patient offered admission. She declined admission and requests to go home. Patient instructed to return to the ER or her primary care provider with any worsening of symptoms. Departure - Departure Time of Disposition: 00:48 Disposition: Home, Self-Care 01 Condition: Fair Clinical Impression: Diverticulitis - Discharge Information *PRESCRIPTION DRUG MONITORING PROGRAM REVIEWED*: No *COPY OF PRESCRIPTION DRUG MONITORING REPORT IN PATIENT CHRISTELLE: No Instructions: Diverticulitis, [id number], Abdominal Pain, Adult, [id number] Forms: ED Department Discharge Additional Instructions: Cipro 500 mg orally twice daily for 10 days Flagyl 500 mg orally twice daily for 10 days Drink plenty of water Follow-up with your primary care provider Return to the ER if any worsening of symptoms Sepsis Event Note (ED) - Evaluation Sepsis Screening Result: No Definite Risk - Focused Exam Vital Signs: Vital Signs Temp Pulse Resp BP Pulse Ox 01/05/21 23:52 98.7 F 80 19 138/76 97 01/05/21 20:37 98.2 F 85 16 148/96 H 98 - My Orders Last 24 Hours: My Active Orders 01/05/21 21:26 Blood Culture x2 Reflex Set [OM.PC] Stat 01/05/21 21:32 CULTURE BLOOD [BC] Stat 01/05/21 21:39 CULTURE BLOOD [BC] Stat - Assessment/Plan Last 24 Hours: My Active Orders 01/05/21 21:26 Blood Culture x2 Reflex Set [OM.PC] Stat 01/05/21 21:32 CULTURE BLOOD [BC] Stat 01/05/21 21:39 CULTURE BLOOD [BC] Stat
[2021-01-05 22:04] LABS: ANION GAP 14.8 mEq/L (7-13)
[2021-01-05] MEDS ORDERED: Sodium Chloride 0.9% 1,000 ML IV ONE (22:09)
--- NOTE | 2021-01-05 22:26 | CT ---
PROCEDURE INFORMATION: Exam: CT Abdomen And Pelvis Without Contrast Exam date and time: 01/05/2021 9:57 PM Age: 60 years old Clinical indication: Abdominal pain; Localized; Left lower quadrant (llq); Prior surgery; Surgery date: 6+ months; Surgery type: Cholecystectomy; Additional info: Llq pain TECHNIQUE: Imaging protocol: Computed tomography of the abdomen and pelvis without contrast. Radiation optimization: All CT scans at this facility use at least one of these dose optimization techniques: automated exposure control; mA and/or kV adjustment per patient size (includes targeted exams where dose is matched to clinical indication); or iterative reconstruction. COMPARISON: CT Abdomen Pelvis w Cont 02/01/2019 8:44 AM FINDINGS: Liver: The liver is normal in architecture, without suspicious abnormality. Gallbladder and bile ducts: The gallbladder is surgically absent. Pancreas: The pancreatic parenchyma is normal in bulk and sharply marginated. Duct is not dilated. No calcifications, masses, or abnormal fluid collections. Spleen: Spleen is normal in size. No mass or fluid collection. Adrenal glands: There are no adrenal masses. Kidneys and ureters: Normal in parenchymal bulk. No hydronephrosis or asymmetric perinephric stranding. No solid masses. No stones. Subcentimeter nodule arising from left kidney anteriorly is too small to characterize, not changed significantly, probably a cortical cyst, requiring no further workup according to guidelines. Stomach and bowel: No significant abnormalities of the stomach. There are no dilated or thickened small bowel loops. Gas and stool are seen in the colon to the rectum. No mass. Appendix: The appendix is seen. It is normal. Intraperitoneal space: There is no pneumoperitoneum, abscess, ascites or mass. Retroperitoneal space: Mild stranding of fat with a left lower quadrant colonic diverticulum at its center. Vasculature: There is atherosclerotic calcification of the aorto-iliac tree. There is no abdominal aortic aneurysm. Lymph nodes: There are no enlarged celiac, mesenteric, periportal, extraperitoneal or inguinal lymph nodes. Urinary bladder: There is no bladder wall thickening, mass, or calculus. Reproductive: The uterus and ovaries are within normal limits. There are no adenexal masses. Bones/joints: Age appropriate. No acute fracture. No dislocation. There are no suspicious lytic or osteosclerotic lesions. Soft tissues: No suspicious soft tissue masses, soft tissue gas of significance, or hernia. IMPRESSION: Acute left lower quadrant colonic diverticulitis. No evidence for perforation, drainable abscess, bowel obstruction, or fistula.
[2021-01-05] MEDS ORDERED: Ciprofloxacin in D5W 400 MG in Premix Bag 1 BAG IV ONE ×2 (22:29)
[2021-01-05] MEDS ORDERED: metroNIDAZOLE/Normal Saline 500 MG in Premix Bag 100 BAG IV ONE (22:29)
[2021-01-05] MEDS ORDERED: HYDROmorphone 0.5 MG/0.5 ML Syringe IVPUSH ONE (22:30)
[2021-01-05 23:53] VITALS: BP 138/76; PULSE 80
== END 2021-01-06 01:03 | disposition home or self-care (01) ==
LOC: DL.ED 20:31
DX: K57.32 Diverticulitis of large intestine without perforation or abscess without bleeding (principal); E11.40 Type 2 diabetes mellitus with diabetic neuropathy, unspecified; E66.9 Obesity, unspecified; E11.22 Type 2 diabetes mellitus with diabetic chronic kidney disease; I12.9 Hypertensive chronic kidney disease with stage 1 through stage 4 chronic kidney disease, or unspecified chronic kidney disease; K21.9 Gastro-esophageal reflux disease without esophagitis; N18.9 Chronic kidney disease, unspecified; E78.5 Hyperlipidemia, unspecified; Z90.49 Acquired absence of other specified parts of digestive tract; Z79.84 Long term (current) use of oral hypoglycemic drugs; Z79.899 Other long term (current) drug therapy; Z91.018 Allergy to other foods; Z72.0 Tobacco use; Z68.41 Body mass index [BMI] 40.0-44.9, adult; Z20.822 Contact with and (suspected) exposure to COVID-19; Z91.041 Radiographic dye allergy status; Z88.5 Allergy status to narcotic agent; Z88.6 Allergy status to analgesic agent
CPT/HCPCS: 36415; 74176; 80053; 81003; 83605; 85025; 86140; 87040; 96365; 96367; 96375; 99284; J0744; J1170; J3490; J7030; U0002

== ENCOUNTER 2021-02-10 06:53 | Day surgery (SDC) | payer MEDICARE ==
[~2021-02-10 06:53] MED LIST: Dextrose 5%-0.45% NaCl 1,000 ML IV SCH; Midazolam 1 MG/ML 2 ML SDV ONE; Sodium Chloride 0.9% 10 ML Syringe FLUSH PRN; fentaNYL 100 MCG/2 ML SDV ONE
[2021-02-10] MEDS ORDERED: fentaNYL 100 MCG/2 ML SDV IV ONE ×3 (06:54→07:38)
[2021-02-10] MEDS ORDERED: Midazolam 1 MG/ML 2 ML SDV IV ONE ×3 (06:54→07:39)
--- NOTE | 2021-02-10 08:41 | OR ---
DATE: 02/10/2021 PROCEDURES: Esophagogastroduodenoscopy and multiple pinch biopsies. INSTRUMENT USED: [id number] Olympus video panendoscope. PREMEDICATIONS: No oral or topical anesthesia used. Fentanyl 100 mcg intravenous, Versed 2 mg intravenous, nasal O2 cannula. The procedure was done under pulse oximetry, BP recording, and newscast director. INDICATION: Diabetic, on multiple medications with persistent nausea, vomiting, and abdominal pain, unexplained and not responsive to medical measures, on PPI. Esophagogastroduodenoscopy is performed for detection of any active erosive lesions, Thapa esophagus and/or malignancy also under consideration, H pylori status to be determined, small bowel biopsies to be obtained for celiac disease if indicated, endoscopic hemostasis therapy if needed. PROCEDURE IN DETAIL: The scope was passed with ease. Adequate visualization of the esophagus was made from proximal to distal areas. No upper esophageal lesions identified. No distal esophageal stricture. No uphill or downhill esophageal varices. No Chaparrita-Marsh tear. No evidence of erosive esophagitis by Cherokee criteria. No esophageal polyp or tumor mass identified. Z-line was seen at around 39 cm distal to the oral verge. No proximal gastric varices noted. Gastric fundus examination by retroflexion showed diminutive benign- appearing multiple polyps. No gastric ulcer, malignant mass, or vascular ectasia identified. Patchy erythema of the antrum was noted. Duodenal bulb showed no ulcer. Visualized second part of the duodenum was unremarkable. Multiple pinch biopsies, 4 in number, were taken from different areas of the second part of the duodenum. Tissues were also obtained from the duodenal bulb at 9 and 12 o'clock positions and sent for any histopathologic evidence of celiac disease. Multiple pinch biopsies were also taken from the gastric antrum and proximal body and sent for PyloriTek test for H pylori and histopathology. No bleeding was noted from any of the visualized areas at the completion of examination. Photographs were taken of the duodenal bulb, gastric antrum, fundus, and distal esophagus. IMPRESSION: 1. Patchy antral gastritis. 2. Diminutive gastric fundus polyps. The patient tolerated the procedure well. [facility] /[id number]
[2021-02-10 09:52] VITALS: BP 126/57; PULSE 102
== END 2021-02-10 09:55 | disposition home or self-care (01) ==
LOC: DL.ENDO 06:53
PROVIDERS: ATTEND Internal Medicine Gastroenterology
DX: K31.7 Polyp of stomach and duodenum (principal); K31.89 Other diseases of stomach and duodenum; E66.01 Morbid (severe) obesity due to excess calories; I10 Essential (primary) hypertension; E11.22 Type 2 diabetes mellitus with diabetic chronic kidney disease; I12.9 Hypertensive chronic kidney disease with stage 1 through stage 4 chronic kidney disease, or unspecified chronic kidney disease; K21.9 Gastro-esophageal reflux disease without esophagitis; N18.9 Chronic kidney disease, unspecified; K58.9 Irritable bowel syndrome, unspecified; Z90.49 Acquired absence of other specified parts of digestive tract; Z68.41 Body mass index [BMI] 40.0-44.9, adult
CPT/HCPCS: 87077; 88305; 88313; J2250; J3010; J7042

== ENCOUNTER 2021-05-24 23:13 | Emergency (ER) | payer MEDICARE, MEDICAID ==
[2021-05-24] MEDS ORDERED: Ondansetron 4 MG Tab.DIS PO ONE (23:14)
--- NOTE | 2021-05-25 00:30 | CT ---
PROCEDURE INFORMATION: Exam: CT Thoracic Spine Without Contrast Exam date and time: 05/24/2021 11:56 PM Age: 61 years old Clinical indication: Injury or trauma; Fall; Injury date: 05/24/2021; Additional info: Fall, tripped on uneven sidewalk, fell forward into wall, head, neck and upper back pain, on aspirin daily TECHNIQUE: Imaging protocol: Computed tomography images of the thoracic spine without contrast. Radiation optimization: All CT scans at this facility use at least one of these dose optimization techniques: automated exposure control; mA and/or kV adjustment per patient size (includes targeted exams where dose is matched to clinical indication); or iterative reconstruction. COMPARISON: No relevant prior studies available. FINDINGS: Vertebrae: There is normal vertebral body alignment. There are normal vertebral body heights. No fracture. Discs/Spinal canal/Neural foramina: Disc spaces are symmetric. Mild, diffuse disc space narrowing. Soft tissues: Unremarkable. IMPRESSION: No fracture.
--- NOTE | 2021-05-25 00:32 | CT ---
PROCEDURE INFORMATION: Exam: CT Head Without Contrast Exam date and time: 05/24/2021 11:56 PM Age: 61 years old Clinical indication: Injury or trauma; Fall; Blunt trauma (contusions or hematomas); Without loss of consciousness; Injury date: Today; Additional info: Fall, tripped on uneven sidewalk, fell forward into wall, head, neck and upper back pain, on aspirin daily TECHNIQUE: Imaging protocol: Computed tomography of the head without contrast. Radiation optimization: All CT scans at this facility use at least one of these dose optimization techniques: automated exposure control; mA and/or kV adjustment per patient size (includes targeted exams where dose is matched to clinical indication); or iterative reconstruction. COMPARISON: CT Head wo Cont 06/13/2017 2:11 AM FINDINGS: Brain: Normal. No hemorrhage. Small remote lacunar infarct in the region of the right internal capsule. No mass effect. Cerebral ventricles: No ventriculomegaly. Paranasal sinuses: Visualized sinuses are unremarkable. No fluid levels. Mastoid air cells: Visualized mastoid air cells are well aerated. Bones/joints: Unremarkable. No acute fracture. Soft tissues: Right frontal scalp hematoma. IMPRESSION: No acute intracerebral change is noted. 2. Remote lacunar infarct in the right hemisphere is above.
--- NOTE | 2021-05-25 00:40 | CT ---
PROCEDURE INFORMATION: Exam: CT Cervical Spine Without Contrast Exam date and time: 05/24/2021 11:56 PM Age: 61 years old Clinical indication: Injury or trauma; Fall; Injury date: 05/24/2021; Additional info: Fall, tripped on uneven sidewalk, fell forward into wall, head, neck and upper back pain, on aspirin daily TECHNIQUE: Imaging protocol: Computed tomography images of the cervical spine without contrast. Radiation optimization: All CT scans at this facility use at least one of these dose optimization techniques: automated exposure control; mA and/or kV adjustment per patient size (includes targeted exams where dose is matched to clinical indication); or iterative reconstruction. COMPARISON: CT Head wo Cont 06/13/2017 2:11 AM FINDINGS: Bones/joints: Slight reversal of the normal lordotic curve. No fracture or subluxation noted. Discs/Spinal canal/Neural foramina: Degenerative changes, maximal at C5/6. Moderate bilateral foraminal stenosis at C3/4 and C4/5 on the left. Lungs: Lung apices are normal. Soft tissues: Unremarkable. IMPRESSION: No acute change is identified. 2. Foraminal stenosis is above.
--- NOTE | 2021-05-25 00:54 | EDM.PDOC ---
ED HPI GENERAL MEDICAL PROBLEM - General Chief Complaint: General Stated Complaint: PT FELL AND HIT HER HEAD Time Seen by Provider: 05/24/21 23:30 Source of Information: Reports: Patient History Limitations: Reports: No Limitations - History of Present Illness INITIAL COMMENTS - FREE TEXT/NARRATIVE: ED per w/c with family reports tripping on uneven pavement falling forward and hitting head, No loss of consciousness. No bleeding, reports area ernandez some dizziness afterfall, vision blurry in right eye if moves fast. lower neck pain tightness. No change in sensation or weakness to upper ore lower extremities. No other injury. Slight nausea from discomfort, no vomiting. Incident around 830 Head Pain Score (Numeric/FACES): 8 - Related Data Allergies Allergy/AdvReac Type Severity Reaction Status Date / Time gadobenate dimeglumine Allergy Unknown SHORT OF Verified 05/24/21 23:34 [From Multihance] BREATH/WHEEZING/CHEST TIGHTNESS meloxicam [From Mobic] Allergy Unknown UNKNOWN Verified 05/24/21 23:34 Iodinated Contrast Media Allergy Shortness Verified 05/24/21 23:34 [Iodinated Contrast- Oral of Breath and IV Dye] tramadol Allergy Syncope Verified 05/24/21 23:34 mushroom extract Allergy Unknown HIVES/URTIC Uncoded 05/24/21 23:34 ARIA Home Meds: Home Meds hydroCHLOROthiazide [Hydrochlorothiazide] 25 mg PO DAILY 04/10/14 [History] FLUoxetine [PROzac] 60 mg PO DAILY 10/28/14 [History] oxyCODONE HCl/Acetaminophen [Endocet 5-325 Tablet] 1 each PO Q4H PRN 10/28/14 [History] Esomeprazole [NexIUM] 20 mg PO DAILY 04/24/15 [History] atorvaSTATin [Lipitor] 20 mg PO DAILY 03/09/17 [History] metFORMIN [Glucophage XR] 500 mg PO BIDMEALS 03/09/17 [History] Albuterol [Ventolin HFA] 1 - 2 puff INH ASDIRECTED PRN 02/04/19 [History] Cholecalciferol (Vitamin D3) [Vitamin D3] 1,000 units PO DAILY 02/04/19 [History] Diclofenac Sodium [Voltaren 0.1% Ophth Soln] 1 applic TOP ASDIRECTED 02/04/19 [History] Potassium Chloride [K-Tab ER] 20 meq PO BID 02/04/19 [History] calcitrioL [Rocaltrol] 0.5 mcg PO DAILY 02/04/19 [History] Losartan [Cozaar] 100 mg PO DAILY 03/30/20 [History] Cefuroxime [Ceftin] 250 mg PO BID 02/09/21 [History] Isosorbide Mononitrate [Isosorbide Mononitrate ER] 60 mg PO DAILY 02/09/21 [History] Melatonin 3 mg PO BEDTIME PRN 02/09/21 [History] Triamcinolone Acetonide [Kenalog 0.1% Crm] 1 applic TOP ASDIRECTED PRN 02/09/21 [History] Aspirin [Halfprin] 81 mg PO DAILY 02/10/21 [History] Past Medical History HEENT History: Reports: Impaired Vision, Other (See Below) Other HEENT History: wears glasses Cardiovascular History: Reports: High Cholesterol, Hypertension, Other (See Below) Other Cardiovascular History: ESSENTIAL HYPERTENSION. 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 CHONDROMALACIA OF LEFT PATELLA. STRESS FRACTURE OF LEFT TIBIA WITH DELAYED HEALING Neurological History: Reports: CVA, Neuropathy, Diabetic, Neuropathy, Peripheral, Seizure, Other (See Below) Other Neuro History: CONVULSIONS. SOMATOFORM DISORDER Psychiatric History: Reports: Anxiety, Depression, Other (See Below) Other Psychiatric History: COGNITIVE DISORDER Endocrine/Metabolic History: Reports: Diabetes, Type II, Obesity/BMI 30+, Vitamin D Deficiency Hematologic History: Reports: B12 Deficiency, Iron Deficiency Immunologic History: Reports: None Oncologic (Cancer) History: Reports: None Dermatologic History: Reports: None - Infectious Disease History Infectious Disease History: Reports: Chicken Pox, Measles, Mumps - Past Surgical History Head Surgeries/Procedures: Reports: None HEENT Surgical History: Reports: None Cardiovascular Surgical History: Reports: None, Other (See Below) Other Cardiovascular Surgeries/Procedures: HX OF HEART CATH Respiratory Surgical History: Reports: None GI Surgical History: Reports: Cholecystectomy, Colonoscopy, EGD Female Surgical History: Reports: D&C, Tubal Ligation, Other (See Below) Other Female Surgeries/Procedures: HYSTERSCOPY. ENDOMETRIAL BIOPSY Endocrine Surgical History: Reports: None Neurological Surgical History: Reports: Other (See Below) Other Neurological Surgeries/Procedures: 11/14/2019 R L4/5 MICRODISECTOMY Musculoskeletal Surgical History: Reports: Shoulder Surgery, Other (See Below) Other Musculoskeletal Surgeries/Procedures:: left ankle Oncologic Surgical History: Reports: None Dermatological Surgical History: Reports: None Social & Family History - Family History Family Medical History: No Pertinent Family History - Tobacco Use Tobacco Use Status *Q: Current Every Day Tobacco User Years of Tobacco use: 44 Packs/Tins Daily: 0.5 - Caffeine Use Caffeine Use: Reports: Coffee, Soda, Tea, Other Caffeine Use Comment: drinks "coke" daily - Recreational Drug Use Recreational Drug Use: No - Living Situation & Occupation Living situation: Reports: with Family ED ROS GENERAL - Review of Systems Review Of Systems: Comprehensive ROS is negative, except as noted in HPI. ED EXAM, GENERAL - Physical Exam Exam: See Below Exam Limited By: No Limitations General Appearance: Alert, Anxious, Mild Distress, Obese Eye Exam: Bilateral Eye: EOMI, PERRL Ears: Normal External Exam, Normal Canal, Hearing Grossly Normal, Normal TMs Nose: Normal Inspection Throat/Mouth: Normal Inspection Head: Normocephalic, Other (tender mid upper forehead) Neck: Tender Lateral Respiratory/Chest: No Respiratory Distress, Lungs Clear, Normal Breath Sounds Cardiovascular: Normal Peripheral Pulses, Regular Rate, Rhythm GI/Abdominal: Normal Bowel Sounds, Soft Back Exam: Paraspinal Tenderness (upper thoracic) Extremities: Normal Range of Motion Neurological: Alert, Oriented, CN II-XII Intact, Normal Cognition, Normal Reflexes, No Motor/Sensory Deficits, Other (GCS15) Psychiatric: Anxious Skin Exam: Warm, Dry, Intact, Normal Color Course - Orders/Labs/Meds Labs: Laboratory Tests 05/25/21 Range/Units 00:21 POC Glucose 106 H (70-99) mg/dL Meds: Medications Discontinued Medications Generic Name Dose Route Start Last Admin Trade Name Freq PRN Reason Stop Dose Admin Acetaminophen 650 mg 05/25/21 00:55 05/25/21 01:07 Acetaminophen 325 Mg Tab PO 05/25/21 00:56 650 mg NOW ONE Administration Cyclobenzaprine HCl 10 mg 05/25/21 00:55 05/25/21 01:06 Cyclobenzaprine 10 Mg Tab PO 05/25/21 00:56 10 mg ONETIME ONE Administration Cyclobenzaprine HCl Confirm 05/25/21 01:01 Cyclobenzaprine 10 Mg Tab Administered 05/25/21 01:02 Dose 10 mg .ROUTE .STK-MED ONE Ondansetron HCl 4 mg 05/25/21 00:55 05/25/21 01:07 Ondansetron 4 Mg Tab.Dis PO 05/25/21 00:56 4 mg ONETIME ONE Administration Ondansetron HCl Confirm 05/25/21 01:01 Ondansetron 4 Mg Tab.Dis Administered 05/25/21 01:02 Dose 8 mg .ROUTE .STK-MED ONE Ondansetron HCl 4 mg 05/24/21 23:14 Ondansetron 4 Mg Tab.Dis PO 05/24/21 23:15 .STK-MED ONE Departure - Departure Time of Disposition: 00:49 Disposition: Home, Self-Care 01 Condition: Good Clinical Impression: Muscle spasm Fall Qualifiers: Encounter type: initial encounter Qualified Code(s): W19.XXXA - Unspecified fall, initial encounter Contusion of head Qualifiers: Encounter type: initial encounter Contusion of head detail: other part of head Qualified Code(s): S00.83XA - Contusion of other part of head, initial encounter - Discharge Information *PRESCRIPTION DRUG MONITORING PROGRAM REVIEWED*: No *COPY OF PRESCRIPTION DRUG MONITORING REPORT IN PATIENT CHRISTELLE: No Instructions: Muscle Cramps and Spasms, [id number], Concussion, Adult, [id number], Contusion, [id number] Forms: ED Department Discharge Additional Instructions: tylenol 500mg every 4 hours as needed for discomfort flexeril 10mg every 8 hours as needed for muscle spasm zofran 4mg ODT every 6 hours as needed for nausea light activity no driving while taking flexeril follow up if symptoms worsen increased pain, vomiting dizziness cold pack to forehead
[2021-05-25] MEDS ORDERED: Ondansetron 4 MG Tab.DIS PO ONE (00:55)
[2021-05-25] MEDS ORDERED: Acetaminophen 325 MG Tab PO ONE (00:55)
[2021-05-25] MEDS ORDERED: Cyclobenzaprine 10 MG Tab PO ONE (00:55)
[2021-05-25] MEDS ORDERED: Cyclobenzaprine 10 MG Tab ONE (01:01)
[2021-05-25] MEDS ORDERED: Ondansetron 4 MG Tab.DIS ONE (01:01)
== END 2021-05-25 01:10 | disposition home or self-care (01) ==
LOC: DL.ED 23:13
DX: S00.83XA Contusion of other part of head, initial encounter (principal); M62.838 Other muscle spasm; I12.9 Hypertensive chronic kidney disease with stage 1 through stage 4 chronic kidney disease, or unspecified chronic kidney disease; E11.22 Type 2 diabetes mellitus with diabetic chronic kidney disease; N18.9 Chronic kidney disease, unspecified; E78.00 Pure hypercholesterolemia, unspecified; J45.909 Unspecified asthma, uncomplicated; M19.90 Unspecified osteoarthritis, unspecified site; E11.42 Type 2 diabetes mellitus with diabetic polyneuropathy; E66.9 Obesity, unspecified; Z68.38 Body mass index [BMI] 38.0-38.9, adult; Z72.0 Tobacco use; Z88.8 Allergy status to other drugs, medicaments and biological substances; Z91.041 Radiographic dye allergy status; Z88.5 Allergy status to narcotic agent; Z91.018 Allergy to other foods; Z79.84 Long term (current) use of oral hypoglycemic drugs; Z79.82 Long term (current) use of aspirin; Z79.899 Other long term (current) drug therapy; W01.198A Fall on same level from slipping, tripping and stumbling with subsequent striking against other object, initial encounter; Y92.480 Sidewalk as the place of occurrence of the external cause
CPT/HCPCS: 70450; 72125; 72128; 82947; 99284; A9270

== ENCOUNTER 2021-07-24 12:55 | Emergency (ER) | payer MEDICARE, OTHER ==
[2021-07-24 13:10] VITALS: BP 135/69; PULSE 99
--- NOTE | 2021-07-24 13:26 | EDM.PDOC ---
ED HPI GENERAL MEDICAL PROBLEM - General Stated Complaint: NAUSEA/ CHEST, ARM AND JAW PAIN Time Seen by Provider: 07/24/21 13:16 Source of Information: Reports: Patient History Limitations: Reports: No Limitations - History of Present Illness INITIAL COMMENTS - FREE TEXT/NARRATIVE: 61 y/o F c/o nausea x 1 month. Today pt developed jaw tightness and left arm pinsH and needles sensation. She states she went to Dr. Berry this week for her nausea and he had a CT done on Mon which was normal. He increased her nexium in the hope that would help her nausea. She reports no heart disease and had an angiogram of her heart last year which was clear. She received her Moderna vaccine 1st dose a month ago. She also reports a 35lb weight loss since March. Has had normal BMs with no reported blood. Normal urination. Gall bladder out in 2007. Hx of diverticulosis. Is a metformin controlled diabetic. Hx of depression. Upper Abdominal Pain Score (Numeric/FACES): 8 - Related Data Allergies Allergy/AdvReac Type Severity Reaction Status Date / Time gadobenate dimeglumine Allergy Unknown SHORT OF Verified 07/24/21 13:08 [From Multihance] BREATH/WHEEZING/CHEST TIGHTNESS meloxicam [From Mobic] Allergy Unknown UNKNOWN Verified 07/24/21 13:08 Iodinated Contrast Media Allergy Shortness Verified 07/24/21 13:08 [Iodinated Contrast- Oral of Breath and IV Dye] tramadol Allergy Syncope Verified 07/24/21 13:08 mushroom extract Allergy Unknown HIVES/URTIC Uncoded 07/24/21 13:08 ARIA Home Meds: Home Meds hydroCHLOROthiazide [Hydrochlorothiazide] 25 mg PO DAILY 04/10/14 [History] FLUoxetine [PROzac] 60 mg PO DAILY 10/28/14 [History] oxyCODONE HCl/Acetaminophen [Endocet 5-325 Tablet] 1 each PO Q4H PRN 10/28/14 [History] Esomeprazole [NexIUM] 40 mg PO DAILY 04/24/15 [History] atorvaSTATin [Lipitor] 20 mg PO DAILY 03/09/17 [History] metFORMIN [Glucophage XR] 500 mg PO BIDMEALS 03/09/17 [History] Albuterol [Ventolin HFA] 1 - 2 puff INH ASDIRECTED PRN 02/04/19 [History] Cholecalciferol (Vitamin D3) [Vitamin D3] 1,000 units PO DAILY 02/04/19 [History] Diclofenac Sodium [Voltaren 0.1% Ophth Soln] 1 applic TOP ASDIRECTED 02/04/19 [History] calcitrioL [Rocaltrol] 0.5 mcg PO DAILY 02/04/19 [History] Losartan [Cozaar] 100 mg PO DAILY 03/30/20 [History] Cefuroxime [Ceftin] 250 mg PO BID 02/09/21 [History] Isosorbide Mononitrate [Isosorbide Mononitrate ER] 60 mg PO DAILY 02/09/21 [History] Melatonin 3 mg PO BEDTIME PRN 02/09/21 [History] Triamcinolone Acetonide [Kenalog 0.1% Crm] 1 applic TOP ASDIRECTED PRN 02/09/21 [History] Aspirin [Halfprin] 81 mg PO DAILY 02/10/21 [History] DULoxetine HCl [Duloxetine HCl] 60 mg PO DAILY 07/24/21 [History] Pramipexole [Mirapex] 0.125 mg PO BEDTIME 07/24/21 [History] Past Medical History HEENT History: Reports: Impaired Vision, Other (See Below) Other HEENT History: wears glasses Cardiovascular History: Reports: High Cholesterol, Hypertension, Other (See Below) Other Cardiovascular History: ESSENTIAL HYPERTENSION. 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 CHONDROMALACIA OF LEFT PATELLA. STRESS FRACTURE OF LEFT TIBIA WITH DELAYED HEALING Neurological History: Reports: CVA, Neuropathy, Diabetic, Neuropathy, Peripheral, Seizure, Other (See Below) Other Neuro History: CONVULSIONS. SOMATOFORM DISORDER Psychiatric History: Reports: Anxiety, Depression, Other (See Below) Other Psychiatric History: COGNITIVE DISORDER Endocrine/Metabolic History: Reports: Diabetes, Type II, Obesity/BMI 30+, Vitamin D Deficiency Hematologic History: Reports: B12 Deficiency, Iron Deficiency Immunologic History: Reports: None Oncologic (Cancer) History: Reports: None Dermatologic History: Reports: None - Infectious Disease History Infectious Disease History: Reports: Chicken Pox, Measles, Mumps - Past Surgical History Head Surgeries/Procedures: Reports: None HEENT Surgical History: Reports: None Cardiovascular Surgical History: Reports: None, Other (See Below) Other Cardiovascular Surgeries/Procedures: HX OF HEART CATH Respiratory Surgical History: Reports: None GI Surgical History: Reports: Cholecystectomy, Colonoscopy, EGD Female Surgical History: Reports: D&C, Tubal Ligation, Other (See Below) Other Female Surgeries/Procedures: HYSTERSCOPY. ENDOMETRIAL BIOPSY Endocrine Surgical History: Reports: None Neurological Surgical History: Reports: Other (See Below) Other Neurological Surgeries/Procedures: 11/14/2019 R L4/5 MICRODISECTOMY Musculoskeletal Surgical History: Reports: Shoulder Surgery, Other (See Below) Other Musculoskeletal Surgeries/Procedures:: left ankle Oncologic Surgical History: Reports: None Dermatological Surgical History: Reports: None Social & Family History - Family History Family Medical History: No Pertinent Family History - Caffeine Use Caffeine Use: Reports: Coffee, Soda, Tea, Other Caffeine Use Comment: drinks "coke" daily - Living Situation & Occupation Living situation: Reports: with Family ED ROS GENERAL - Review of Systems Review Of Systems: Comprehensive ROS is negative, except as noted in HPI. ED EXAM, GENERAL - Physical Exam Exam: See Below Exam Limited By: No Limitations General Appearance: Alert, Anxious Eye Exam: Bilateral Eye: PERRL Nose: Normal Inspection, Normal Mucosa, No Blood Throat/Mouth: Normal Inspection, Normal Lips, Normal Teeth, Normal Gums, Normal Oropharynx, Normal Voice, No Airway Compromise Head: Atraumatic, Normocephalic Neck: Normal Inspection, Supple, Non-Tender, Full Range of Motion Respiratory/Chest: No Respiratory Distress, Lungs Clear, Normal Breath Sounds Cardiovascular: Normal Peripheral Pulses, Regular Rate, Rhythm, No JVD, No Murmur GI/Abdominal: Soft, Tender (tender throughout) (Female) Exam: Deferred Rectal (Female) Exam: Deferred Back Exam: Normal Inspection, Full Range of Motion, NT Extremities: Normal Inspection, Normal Range of Motion, Non-Tender, Normal Capillary Refill, No Pedal Edema Neurological: Alert, Oriented, CN II-XII Intact, Normal Cognition, Normal Gait, Normal Reflexes, No Motor/Sensory Deficits Psychiatric: Normal Affect, Normal Mood Skin Exam: Warm, Dry, Intact #1 Interpretation EKG Date: 07/24/21 Time: 13:21 Rhythm: NSR [place]: LAD-Left [place] Deviation P-Wave: Present QRS: Normal ST-T: Normal QT: Normal Course - Vital Signs Last Recorded V/S: Last Vital Signs Temp 97.1 F 07/24/21 13:08 Pulse 99 07/24/21 13:08 Resp 18 07/24/21 13:08 BP 135/69 07/24/21 13:08 Pulse Ox 97 07/24/21 13:08 - Orders/Labs/Meds Orders: Active Orders 24 hr Category Date Time Status Peripheral IV Care [RC] . DIRECTED Care 07/24/21 13:00 Active CBC WITH AUTO DIFF [HEME] Stat Lab 07/24/21 13:26 Results CULTURE BLOOD [BC] Stat Lab 07/24/21 15:12 Received CULTURE BLOOD [BC] Stat Lab 07/24/21 15:33 Received MANUAL DIFFERENTIAL QA/NC [HEME] Stat Lab 07/24/21 13:26 Results D5 1/2 NS w/ 10 mEq/L KCl 1,000 ml Med 07/24/21 15:15 Active IV ASDIRECTED Potassium Chloride [Klor-Con 10] Med 07/24/21 18:25 Once 40 meq PO ONETIME ONE Sodium Chloride 0.9% [Saline Flush] Med 07/24/21 12:59 Active 10 ml FLUSH ASDIRECTED PRN Blood Culture x2 Reflex Set [OM.PC] Stat Oth 07/24/21 15:03 Ordered Peripheral IV Insertion Adult [OM.PC] Routine Oth 07/24/21 12:59 Ordered Medication Orders Potassium Chloride/Dextrose/Sod Cl (D5 1/2 Ns W/ 10 Meq/L Kcl) 1,000 mls @ 999 mls/hr IV ASDIRECTED MI Last Admin: 07/24/21 15:45 Dose: 999 mls/hr Documented by: EFREN Sodium Chloride (Sodium Chloride 0.9% 10 Ml Syringe) 10 ml FLUSH ASDIRECTED PRN PRN Reason: Keep Vein Open Last Admin: 07/24/21 14:35 Dose: 10 ml Documented by: Admin: 07/24/21 13:33 Dose: 10 ml Documented by: YAW Labs: Laboratory Tests 07/24/21 07/24/21 07/24/21 Range/Units 13:26 13:26 13:43 WBC 18.3 H (5.0-10.0) 10^3/uL RBC 4.71 (4.2-5.4) 10^6/uL Hgb 13.6 (12.0-16.0) g/dL Hct 39.6 (37.0-47.0) % MCV 84.1 (80-100) fL MCH 28.9 (27.0-34.0) pg MCHC 34.3 (33.0-35.0) g/dL Plt Count 311 (150-450) 10^3/uL Neut % (Auto) 84.4 H (42.2-75.2) % Lymph % (Auto) 10.0 L (20.5-50.1) % [place] % (Auto) 4.1 (2-8) % Eos % (Auto) 1.3 (1.0-3.0) % Baso % (Auto) 0.2 (0.0-1.0) % Add Manual Diff Yes Sodium 140 (136-145) mmol/L Potassium 2.4 L* (3.5-5.1) mmol/L Chloride 99 (98-107) mmol/L Carbon Dioxide 31 (21-32) mmol/L Anion Gap 12.4 (7-13) mEq/L BUN 10 (7-18) mg/dL Creatinine 1.04 H (0.55-1.02) mg/dL Est Cr Clr Drug Dosing 49.67 mL/min Estimated GFR (MDRD) 54 BUN/Creatinine Ratio 9.6 (No establ ref range) Glucose 175 H (70-99) mg/dL Lactic Acid (0.4-2.0) mmol/L Calcium 7.8 L (8.5-10.1) mg/dL Magnesium 0.8 L (1.8-2.4) mg/dL Total Bilirubin 0.6 (0.2-1.0) mg/dL AST 9 L (15-37) U/L ALT 19 (14-59) U/L Alkaline Phosphatase 109 (46-116) U/L Troponin I High Sens 6 (<=51) pg/mL C-Reactive Protein 3.0 H (0.0-0.9) mg/dL B-Natriuretic Peptide 56 (0-100) pg/ml Total Protein 7.0 (6.4-8.2) g/dL Albumin 3.1 L (3.4-5.0) g/dL Globulin 3.9 Albumin/Globulin Ratio 0.79 Amylase 37 (25-115) U/L Lipase 64 L (73-393) U/L TSH, Ultra Sensitive 1.41 (0.36-3.74) uIU/mL Urine Color (YELLOW) Urine Appearance (CLEAR) Urine pH (5.0-9.0) Ur Specific [place] (1.005-1.030) Urine Protein (NEGATIVE) Urine Glucose (UA) (NEGATIVE) Urine Ketones (NEGATIVE) Urine Occult Blood (NEGATIVE) Urine Nitrite (NEGATIVE) Urine Bilirubin (NEGATIVE) Urine Urobilinogen (0.2-1.0) mg/dL Ur Leukocyte Esterase (NEGATIVE) SARS-CoV-2 RNA (KRISTAN) Negative (NEGATIVE) 07/24/21 07/24/21 07/24/21 Range/Units 14:47 15:12 17:28 WBC (5.0-10.0) 10^3/uL RBC (4.2-5.4) 10^6/uL Hgb (12.0-16.0) g/dL Hct (37.0-47.0) % MCV (80-100) fL MCH (27.0-34.0) pg MCHC (33.0-35.0) g/dL Plt Count (150-450) 10^3/uL Neut % (Auto) (42.2-75.2) % Lymph % (Auto) (20.5-50.1) % [place] % (Auto) (2-8) % Eos % (Auto) (1.0-3.0) % Baso % (Auto) (0.0-1.0) % Add Manual Diff Sodium 138 (136-145) mmol/L Potassium 2.5 L (3.5-5.1) mmol/L Chloride 98 (98-107) mmol/L Carbon Dioxide 33 H (21-32) mmol/L Anion Gap 9.5 (7-13) mEq/L BUN 10 (7-18) mg/dL Creatinine 0.98 (0.55-1.02) mg/dL Est Cr Clr Drug Dosing 52.72 mL/min Estimated GFR (MDRD) 58 BUN/Creatinine Ratio 10.2 (No establ ref range) Glucose 214 H (70-99) mg/dL Lactic Acid 1.6 (0.4-2.0) mmol/L Calcium 7.4 L (8.5-10.1) mg/dL Magnesium 1.7 L (1.8-2.4) mg/dL Total Bilirubin 0.4 (0.2-1.0) mg/dL AST 5 L (15-37) U/L ALT 14 (14-59) U/L Alkaline Phosphatase 104 (46-116) U/L Troponin I High Sens (<=51) pg/mL C-Reactive Protein (0.0-0.9) mg/dL B-Natriuretic Peptide (0-100) pg/ml Total Protein 6.6 (6.4-8.2) g/dL Albumin 2.9 L (3.4-5.0) g/dL Globulin 3.7 Albumin/Globulin Ratio 0.78 Amylase (25-115) U/L Lipase (73-393) U/L TSH, Ultra Sensitive (0.36-3.74) uIU/mL Urine Color Yellow (YELLOW) Urine Appearance Clear (CLEAR) Urine pH 7.0 (5.0-9.0) Ur Specific [place] 1.025 (1.005-1.030) Urine Protein Negative (NEGATIVE) Urine Glucose (UA) Negative (NEGATIVE) Urine Ketones Negative (NEGATIVE) Urine Occult Blood Negative (NEGATIVE) Urine Nitrite Negative (NEGATIVE) Urine Bilirubin Negative (NEGATIVE) Urine Urobilinogen 1.0 (0.2-1.0) mg/dL Ur Leukocyte Esterase Negative (NEGATIVE) SARS-CoV-2 RNA (KRISTAN) (NEGATIVE) Meds: Medications Generic Name Dose Route Start Last Admin Trade Name Freq PRN Reason Stop Dose Admin Potassium Chloride/Dextrose/Sod Cl 1,000 mls @ 999 mls/hr 07/24/21 15:15 07/24/21 15:45 D5 1/2 Ns W/ 10 Meq/L Kcl IV 999 mls/hr ASDIRECTED MI Administration Sodium Chloride 10 ml 07/24/21 12:59 07/24/21 14:35 Sodium Chloride 0.9% 10 Ml Syringe FLUSH 10 ml ASDIRECTED PRN Administration Keep Vein Open Discontinued Medications Generic Name Dose Route Start Last Admin Trade Name Freq PRN Reason Stop Dose Admin Magnesium Sulfate 2 gm/ Premix 50 mls @ 25 mls/hr 07/24/21 15:00 07/24/21 15:11 IV 07/24/21 16:59 25 mls/hr ONETIME ONE Administration Ondansetron HCl 4 mg 07/24/21 14:09 07/24/21 14:35 Ondansetron 4 Mg/2 Ml Sdv IVPUSH 07/24/21 14:10 4 mg ONETIME ONE Administration - Re-Assessments/Exams Free Text/Narrative Re-Assessment/Exam: 07/24/21 15:12 Corrected calcium is 8.1 07/24/21 18:27 I discussed the pt with Dr. Lezama and he asked that the pt be given 40 MEq of potassium and discharged home with a plan to come back in the morning for a recheck of her CMP. Departure - Departure Time of Disposition: 18:28 Disposition: Home, Self-Care 01 Condition: Fair Clinical Impression: Hypomagnesemia, Hypokalemia Instructions: Hypomagnesemia, Hypokalemia Additional Instructions: Go to the store and purchase a magnesium supplement to aid in increasing your magnesium levels. Come back to the hospital tomorrow for a recheck of your potassium levels. If any new symptoms or concerns develop contact your primary care facility or return to the ER. Sepsis Event Note (ED) - Evaluation Sepsis Screening Result: No Definite Risk - Focused Exam Vital Signs: Vital Signs Temp Pulse Resp BP Pulse Ox 07/24/21 13:08 97.1 F 99 18 135/69 97 - My Orders Last 24 Hours: My Active Orders 07/24/21 12:59 Sodium Chloride 0.9% [Saline Flush] 10 ml FLUSH ASDIRECTED PRN Peripheral IV Insertion Adult [OM.PC] Routine 07/24/21 13:00 Peripheral IV Care [RC] . DIRECTED 07/24/21 13:26 CBC WITH AUTO DIFF [HEME] Stat MANUAL DIFFERENTIAL QA/NC [HEME] Stat 07/24/21 15:03 Blood Culture x2 Reflex Set [OM.PC] Stat 07/24/21 15:12 CULTURE BLOOD [BC] Stat 07/24/21 15:15 D5 1/2 NS w/ 10 mEq/L KCl 1,000 ml IV ASDIRECTED 07/24/21 15:33 CULTURE BLOOD [BC] Stat 07/24/21 18:25 Potassium Chloride [Klor-Con 10] 40 meq PO ONETIME ONE - Assessment/Plan Last 24 Hours: My Active Orders 07/24/21 12:59 Sodium Chloride 0.9% [Saline Flush] 10 ml FLUSH ASDIRECTED PRN Peripheral IV Insertion Adult [OM.PC] Routine 07/24/21 13:00 Peripheral IV Care [RC] . DIRECTED 07/24/21 13:26 CBC WITH AUTO DIFF [HEME] Stat MANUAL DIFFERENTIAL QA/NC [HEME] Stat 07/24/21 15:03 Blood Culture x2 Reflex Set [OM.PC] Stat 07/24/21 15:12 CULTURE BLOOD [BC] Stat 07/24/21 15:15 D5 1/2 NS w/ 10 mEq/L KCl 1,000 ml IV ASDIRECTED 07/24/21 15:33 CULTURE BLOOD [BC] Stat 07/24/21 18:25 Potassium Chloride [Klor-Con 10] 40 meq PO ONETIME ONE
[2021-07-24] MEDS: Sodium Chloride 0.9% 10 ML Syringe FLUSH PRN ×2 (13:33→14:35)
[2021-07-24] MEDS ORDERED: Ondansetron 4 MG/2 ML SDV IVPUSH ONE (14:09)
[2021-07-24 14:13] LABS: ANION GAP 12.4 mEq/L (7-13)
--- NOTE | 2021-07-24 14:59 | CR ---
PROCEDURE INFORMATION: Exam: XR Chest Exam date and time: 07/24/2021 2:19 PM Age: 61 years old Clinical indication: Other: Upper abdomen/lower chest pain; Additional info: Upper abd pn elevated wbc TECHNIQUE: Imaging protocol: XR of the chest. Views: 1 view. COMPARISON: CR Chest 1V Frontal 02/26/2020 1:34 PM FINDINGS: Lungs: Unremarkable. No consolidation. Pleural spaces: Unremarkable. No pleural effusion. No pneumothorax. Heart/Mediastinum: Unremarkable. No cardiomegaly. Bones/joints: Unremarkable. IMPRESSION: No acute findings.
[2021-07-24] MEDS ORDERED: Magnesium Sulfate/Water 2 GM in Premix Bag 1 BAG IV ONE (15:00)
[2021-07-24] MEDS ORDERED: D5 1/2 NS w/ 10 mEq/L KCl 1,000 ML IV SCH (15:15)
[2021-07-24 18:03] LABS: ANION GAP 9.5 mEq/L (7-13)
[2021-07-24] MEDS ORDERED: Potassium Chloride 10 MEQ Tab.ER PO ONE (18:25)
== END 2021-07-24 18:57 | disposition home or self-care (01) ==
LOC: DL.ED 12:55
DX: E87.6 Hypokalemia (principal); E83.42 Hypomagnesemia; E78.00 Pure hypercholesterolemia, unspecified; I10 Essential (primary) hypertension; K21.9 Gastro-esophageal reflux disease without esophagitis; E11.9 Type 2 diabetes mellitus without complications; E66.9 Obesity, unspecified; Z91.018 Allergy to other foods; Z88.5 Allergy status to narcotic agent; Z91.041 Radiographic dye allergy status; Z88.8 Allergy status to other drugs, medicaments and biological substances; Z79.82 Long term (current) use of aspirin; Z79.899 Other long term (current) drug therapy; Z79.84 Long term (current) use of oral hypoglycemic drugs; Z86.73 Personal history of transient ischemic attack (TIA), and cerebral infarction without residual deficits; Z20.822 Contact with and (suspected) exposure to COVID-19; Z68.36 Body mass index [BMI] 36.0-36.9, adult
CPT/HCPCS: 36415; 71045; 80053; 81003; 82150; 83605; 83690; 83735; 83880; 84443; 84484; 85025; 86140; 87040; 93005; 96365; 96366; 96368; 96375; 99284; A9270; J2405; J3475; J3480; U0002

== ENCOUNTER 2022-09-12 15:41 | Emergency (ER) | payer MEDICARE, MEDICAID ==
[2022-09-12] MEDS ORDERED: Sodium Chloride 0.9% 10 ML Syringe FLUSH PRN (15:56)
[2022-09-12 16:24] VITALS: BP 143/61; PULSE 61
[2022-09-12 16:29] LABS: ANION GAP 12.1 mEq/L (7-13); PTT,PARTIAL THROMBOPLSTIN TIME 24.5 SEC (22.0-34.0)
[2022-09-12 16:42] LABS: CORONAVIRUS COVID-19 NAA NEGATIVE (NEGATIVE); RESPIRATORY SYNCYTIAL VIR NAA NEGATIVE (NEGATIVE)
== END 2022-09-12 19:15 | disposition home or self-care (01) ==
LOC: DL.ED 15:41
DX: R07.9 Chest pain, unspecified (principal); E78.00 Pure hypercholesterolemia, unspecified; I12.9 Hypertensive chronic kidney disease with stage 1 through stage 4 chronic kidney disease, or unspecified chronic kidney disease; K21.9 Gastro-esophageal reflux disease without esophagitis; E11.22 Type 2 diabetes mellitus with diabetic chronic kidney disease; E11.42 Type 2 diabetes mellitus with diabetic polyneuropathy; N18.9 Chronic kidney disease, unspecified; E66.9 Obesity, unspecified; Z68.39 Body mass index [BMI] 39.0-39.9, adult; Z91.018 Allergy to other foods; Z88.5 Allergy status to narcotic agent; Z91.041 Radiographic dye allergy status; Z79.899 Other long term (current) drug therapy; Z20.822 Contact with and (suspected) exposure to COVID-19
CPT/HCPCS: 0241U; 36415; 71045; 80053; 83735; 83880; 84484; 85025; 85379; 85610; 85730; 93005; 99285

== ENCOUNTER 2024-09-07 15:12 | Emergency (ER) | payer MEDICARE ==
[2024-09-07 17:51] VITALS: BP 115/76; PULSE 92
[2024-09-07] MEDS: Dexamethasone 4 MG/ML SDV IM ONE (19:28)
[2024-09-07] MEDS: Albuterol/Ipratropium 3.0-0.5 MG/3 ML Neb Soln NEB ONE (19:28)
== END 2024-09-07 19:51 | disposition home or self-care (01) ==
LOC: DL.ED 15:12
DX: J44.1 Chronic obstructive pulmonary disease with (acute) exacerbation (principal); H10.89 Other conjunctivitis; I12.9 Hypertensive chronic kidney disease with stage 1 through stage 4 chronic kidney disease, or unspecified chronic kidney disease; N18.9 Chronic kidney disease, unspecified; J45.909 Unspecified asthma, uncomplicated; E78.00 Pure hypercholesterolemia, unspecified; E11.42 Type 2 diabetes mellitus with diabetic polyneuropathy; K21.9 Gastro-esophageal reflux disease without esophagitis; M19.90 Unspecified osteoarthritis, unspecified site; E66.9 Obesity, unspecified; F17.210 Nicotine dependence, cigarettes, uncomplicated; Z90.49 Acquired absence of other specified parts of digestive tract; Z86.73 Personal history of transient ischemic attack (TIA), and cerebral infarction without residual deficits; Z88.5 Allergy status to narcotic agent; Z88.8 Allergy status to other drugs, medicaments and biological substances; Z91.041 Radiographic dye allergy status; Z91.018 Allergy to other foods; Z79.51 Long term (current) use of inhaled steroids; Z79.82 Long term (current) use of aspirin; Z79.84 Long term (current) use of oral hypoglycemic drugs; Z79.899 Other long term (current) drug therapy
CPT/HCPCS: 71046; 82947; 87428; 96372; 99284; J1100; J7620-GY